=== PATIENT | male | born 1990 | race Caucasian/White ===

== ENCOUNTER 2022-12-31 20:14 | Emergency (ER) | payer BC, SELFPAY ==
[2022-12-31 20:19] VITALS: BP 149/92; PULSE 84; RESP 20; TEMP 36.7; O2SAT 100
--- NOTE | 2022-12-31 21:34 | ED.GENADULT ---
HPI - General Adult General Chief complaint: Unspecified Stated complaint: std exposure Time Seen by Provider: 12/31/22 20:38 History of Present Illness HPI narrative: This is a 32-year-old male concerned for herpes. Patient noticed that he has 2 small lesions on his penis just proximal to the glans. There only painful when he touches them. he has history of oral canker sores but no genital ulcerations. He is and not had a new partner in 6 years. Patient denies dysuria, Penile discharge, testicle pain or any other complaints. Patient notes that he worked out in the sun and was sweaty all day yesterday and did not take a shower afterwards. Related Data Home Medications Medication Instructions Recorded Confirmed phentermine 15 mg capsule mg 12/31/22 Allergies Allergy/AdvReac Type Severity Reaction Status Date / Time No Known Allergies Allergy Verified 12/31/22 20:23 [facility] Social History Social History Smoking status: Never smoker Second hand tobacco smoke exposure: No Alcohol intake: current Exam Narrative: APPEARANCE: No apparent distress. Head: atraumatic. EYES: EOMI, NOSE: Atraumatic NECK: Trachea midline RESPIRATORY: No increased rate of breathing CARDIOVASCULAR: RRR, ABDOMINAL: Non-distended MUSCULOSKELETAl: No obvious deformities NEURO: Alert. Moving 4/4 extremities SKIN:: Warm, dry. Normal color PSYCHIATRIC: Normal affect genital: On the right side just proximal the glans there are 2 small areas of irritation. No punched-out ulcerations. No penile discharge. No testicle pain. Course Vital Signs Vital signs: Vital Signs Temperature 98.0 F 12/31/22 20:19 Pulse Rate 84 12/31/22 20:19 Respiratory Rate 12/31/22 20:19 Blood Pressure 149/92 H 12/31/22 20:19 Pulse Oximetry 100 12/31/22 20:19 Oxygen Delivery Room Air 12/31/22 20:19 Temperature 98.0 F 12/31/22 20:19 Pulse Rate 84 12/31/22 20:19 Respiratory Rate 20 12/31/22 20:19 Blood Pressure 149/92 H 12/31/22 20:19 Pulse Oximetry 100 12/31/22 20:19 Oxygen Delivery Room Air 12/31/22 20:19 Medical Decision Making MDM Narrative Medical decision making narrative: -Presentation: 32-year-old male presenting with penile irritation -DDX includes but is not limited to: balanitis, herpes, STDs, fungal infection -Co-morbidities complicating care: none -Social determinants of health: , with 1 partner -External Chart Review: none -Hx from independent Sources: none -Discussion of Management/Consultants: none -Independent interpretation of studies: none Dx tests considered but not ordered: STD testing-patient declined -Procedures: none -Interventions: none -Shared decision making / Disposition: patient presentation is more consistent with balanitis as opposed to herpes infection. He has been instructed on proper hygiene and continue to use a topical abx. -RX: Vital Signs Vital Signs: Vital Signs Temperature 98.0 F 12/31/22 20:19 Pulse Rate 84 12/31/22 20:19 Respiratory Rate 20 12/31/22 20:19 Blood Pressure 149/92 H 12/31/22 20:19 Pulse Oximetry 100 12/31/22 20:19 Oxygen Delivery Room Air 12/31/22 20:19 Temperature 98.0 F 12/31/22 20:19 Pulse Rate 84 12/31/22 20:19 Respiratory Rate 20 12/31/22 20:19 Blood Pressure 149/92 H 12/31/22 20:19 Pulse Oximetry 100 12/31/22 20:19 Oxygen Delivery Room Air 12/31/22 20:19 Discharge Plan Discharge Clinical Impression: Balanitis Patient Disposition: Home, Self-Care Condition: Stable Instructions: Antibiotic Form, Balanitis (ED) Additional Instructions: He was seen in the emergency department some irritation around her penis. This is likely balanitis. Please make sure that you are using proper hygiene and continue to use your mupirocin cream. Please follow-up your primary care physicia
== END 2022-12-31 21:59 | disposition home or self-care (01) ==
PROVIDERS: Emergency Provider Emergency Medicine
DX: N48.1 Balanitis (principal)
CPT/HCPCS: 99283

== ENCOUNTER 2023-01-14 12:27 | Emergency (ER) | payer BC, SELFPAY ==
--- NOTE | ~2023-01-14 | XR_ITS ---
EXAMINATION: XR chest 2V DATE: 01/14/2023 13:38 INDICATION: Right upper chest pain TECHNIQUE: Frontal and lateral views of the chest are obtained COMPARISON: None available FINDINGS: The lungs are free of acute opacities. No pleural effusion or pneumothorax. The cardiomedia stinal silhouette is normal. The visualized bones and soft tissues are unremarkable. IMPRESSION: 1. No acute cardiopulmonary abnormality. Reviewed, dictated and finalized at location A.
--- NOTE | 2023-01-14 12:29 | ECG_ITS ---
Measurements Intervals [place] Rate: 85 P: 36 TN: 158 QRS: 17 QRSD: 95 T: 32 QT: 330 QTc: 394 Interpretive Statements SINUS RHYTHM NORMAL ECG NO PREVIOUS ECG AVAILABLE FOR COMPARISON Electronically Signed On 01-14-2023 13:17:24 CDT by Bharat Fernando D.O.
[2023-01-14 12:48] VITALS: BP 133/76; PULSE 90; RESP 18; O2SAT 98
[2023-01-14 12:55] LABS: Basophils Percent Auto 0.4 % (0.2-1.2); Eosinophils Absolute Auto 0.1 K/mm3 (0-0.3); Eosinophils Percent Auto 1.1 % (0-4.4); Hematocrit 41.1 % (42.0-52.0); Hemoglobin 13.9 g/dL (14.0-18.0); Immature Granulocyte Absolute 0.02 K/mm3 (0.00-0.031); Immature Granulocyte Percent A 0.2 % (0-0.5); Lymphocytes Absolute Auto 1.32 K/mm3 (0.9-3.2); Lymphocytes Percent Auto 13.2 % (18.3-44.2); Mean Corpuscular HGB Conc 33.8 g/dl (32-36); Mean Corpuscular Hemoglobin 28.8 pg (26-34); Mean Corpuscular Volume 85.1 fl (80-100); Mean Platelet Volume 10.5 fl (7.4-10.4); Monocytes Absolute Auto 0.6 K/mm3 (0.1-0.6); Monocytes Percent Auto 5.7 % (2.6-8.5); Neutrophils Percent Auto 79.4 % (45.5-73.1); Platelet Count Result 242 k/mm3 (150-375); Red Blood Count 4.83 M/mm3 (4.6-6.20)
[2023-01-14 13:06] LABS: INR 1.1; Prothrombin Time 14.5 Seconds (11.1-14.7)
[2023-01-14 13:21] LABS: Alanine Aminotransferase 26 U/L (6-50); Albumin Level 4.6 g/dL (3.5-5.1); Alkaline Phosphatase 44 U/L (38-126); Anion Gap 8 mmol/L (8-16); Aspartate Amino Transferase 23 U/L (17-59); Bilirubin,Total 1.2 mg/dL (0.2-1.3); Blood Urea Nitrogen 13 mg/dL (9-20); Calcium 9.3 mg/dL (8.4-10.2); Carbon Dioxide 26 mmol/L (22-30); Chloride 104 mmol/L (98-107); Estimated CRCL calculation 136 ml/min; Estimated Glomerular Filt Rate > 60; Glucose 90 mg/dL (65-110); Lipase 57 U/L (23-300); Potassium 4.3 mmol/L (3.4-5.0); Sodium 138 mmol/L (137-145); Troponin I < 0.012 ng/mL (0.000-0.034)
[2023-01-14 15:03] VITALS: BP 137/78; PULSE 67; RESP 16; O2SAT 98
--- NOTE | 2023-01-14 15:31 | ED.CHESTPAIN ---
HPI - Chest Pain General Chief Complaint: Chest Pain Stated Complaint: right sided chest tightness Time Seen by Provider: 01/14/23 14:45 Source: patient and RN notes reviewed Mode of arrival: ambulatory Limitations: no limitations History of Present Illness HPI narrative: This is a 32 year old who presents for evaluation of right upper chest pain. He states he woke up yesterday with right upper chest pain tightness. He states it has been noticeable but not severe. He states he had an episode of pain radiating down his right arm when he hold his child once. He denies having any pain now at rest. He states pain is intermittent tightness that he feels when he touches the area. He denies any injury or strenous activity. He states he did lift some pallets yesterday but he states he already noticed the pain. He denies chest pain, shortness of breath, nausea, vomiting, fever, cough, swelling. Denies history of PE or DVT. He is pain free at this point. Related Data Home Medications Medication Instructions Recorded Confirmed phentermine 15 mg capsule mg 12/31/22 Allergies Allergy/AdvReac Type Severity Reaction Status Date / Time No Known Allergies Allergy Verified 12/31/22 20:23 Review of Systems Constitutional: Constitutional: Denies weakness Cardiovascular: Cardiovascular: Reports chest pain, Denies syncope, Denies rapid heart rate, Denies irregular heart rhythm, Denies leg edema and Denies dyspnea Respiratory: Respiratory: Denies chest congestion, Denies hemoptysis, Denies excessive phlegm production and Denies dyspnea Gastrointestinal: Gastrointestinal: Denies abdominal pain, Denies hematochezia, Denies diarrhea and Denies vomiting Genitourinary: Genitourinary: Denies hematuria, Denies dysuria, Denies penile discharge and Denies testicular pain Musculoskeletal: Musculoskeletal: Denies joint swelling, Denies loss of height and Denies muscle weakness Neurologic: Denies syncope, Denies focal weakness and Denies weakness PMFSH Past Medical History Medical History (Updated 01/14/23 @ 16:22 by Marli Heaton MD) Patient denies medical problems Social History Social History Smoking status: Never smoker Second hand tobacco smoke exposure: No Alcohol intake: current Exam Const: General: alert Nutritional Appearance: well nourished Orientation/consciousness: patient oriented x3 Limitations: no limitations HENMT: Head: normal to inspection Eyes: EOM: EOMs intact bilaterally Neck: Neck: normal visual inspection Chest: Chest palpation & inspection: normal inspection of the chest Resp: Effort & Inspection: normal respiratory effort Auscultation: clear to auscultation bilaterally Cardio: Rate: regular rate Rhythm: regular rhythm Heart sounds: no murmurs Other: strong right radial pulse GI: GI Palp: Yes Soft to palpation, No Tenderness to palpation present (GI), No Guarding due to palpation present (GI) and No Rigid due to palpation Auscultation: normal bowel sounds Skin: General skin exam: normal color Rashes: no rashes Wounds: no wounds Neuro: General: patient oriented x3, moves all extremities and CN's II-XI intact bilaterally Gait exam (Neuro): Normal gait present Extrem: General: normal to inspection Psych: Mental Status: mental status grossly normal Affect: normal affect Attitude: cooperative Course Reevaluation(s) Date: 01/14/23 Time: 16:22 Vital Signs Vital signs: Vital Signs Pulse Rate 90 01/14/23 12:48 Respiratory Rate 18 01/14/23 12:48 Blood Pressure 133/76 01/14/23 12:48 Pulse Oximetry 98 01/14/23 12:48 Temperature 97.6 F 01/14/23 15:39 Pulse Rate 71 01/14/23 16:35 Respiratory Rate 16 01/14/23 16:35 Blood Pressure 127/75 01/14/23 16:35 Pulse Oximetry 100 01/14/23 16:35 MDM - Chest Pain Differential Diagnosis Differential diagnosis: Likely unstable angina pectori
[2023-01-14 15:39] VITALS: TEMP 36.4
[2023-01-14 15:55] LABS: Troponin I < 0.012 ng/mL (0.000-0.034)
[2023-01-14 16:13] LABS: D Dimer < 0.27 ug/mL (<0.48)
[2023-01-14 16:35] VITALS: BP 127/75; PULSE 71; RESP 16; O2SAT 100
== END 2023-01-14 16:37 | disposition home or self-care (01) ==
PROVIDERS: Emergency Provider General Practice
DX: R07.89 Other chest pain (principal)
CPT/HCPCS: 36415; 71046; 80053; 83690; 84484; 85025; 85380; 85610; 85730; 93005; 99284